=== PATIENT | female | born 1945 | race Caucasian/White ===

== ENCOUNTER 2020-05-26 09:57 | Outpatient (CLI) | payer MEDICARE, SELFPAY ==
--- NOTE | ~2020-05-26 | CT_ITS ---
EXAMINATION: CT abdomen pelvis w con DATE: 05/26/2020 10:36 INDICATION: Diffuse abdominal pain for 1.5 years TECHNIQUE: Computed tomography (CT) of the abdomen and pelvis was performed with 100 cc Omnipaque 350 intravenous contrast. Automated exposure control and iterative reconstruction technique were employe d. Exam dose: 248.54 mGy-cm total exam DLP. COMPARISON: 09/25/2019 CT abdomen pelvis 11/23/2018 complete abdominal ultrasound examination FINDINGS: The lung bases are clear of infiltrate or consolidation. Mild cardiomegaly. No pericardial or pleural effusion. There is a fat-containing left foramen of Bochdalek hernia. No hepatic, splenic, pancreatic, adrenal or renal space-occupying mass lesion is evident. The gallbla dder is present. No bile duct dilatation. No urinary tract calculus or hydroureteronephrosis is evide nt. The urinary bladder is relatively evacuated, not optimally evaluated. The uterus and adnexal area s are unremarkable. Normal caliber of the abdominal aorta. No intraperitoneal or retroperitoneal or pelvic mass lesion or adenopathy or ascites is detected. No bowel obstruction, bowel wall thickening, pneumatosis or intraperitoneal free air. Normal appendix . Very small fat-containing umbilical hernia. Included skeletal structures are unremarkable. IMPRESSION: No cause for generalized abdominal pain for 1.5 years is identified Reviewed, dictated and finalized at Location A. Reviewed, dictated and finalized at location B. IMPRESSION: No cause for generalized abdominal pain for 1.5 years is identifie d
[2020-05-26 10:23] LABS: Estimated Glomerular Filt Rate > 60
== END 2020-05-26 09:58 | disposition home or self-care (01) ==
LOC: ANHIMG 10:02
PROVIDERS: PCP Family Medicine; Visit Provider Family Medicine
DX: R10.9 Unspecified abdominal pain (principal)
CPT/HCPCS: 36415; 74177; Q9967

== ENCOUNTER 2020-06-18 01:32 | Outpatient (CLI) | payer MEDICARE, SELFPAY ==
[2020-06-18 19:29] LABS: SARS-CoV-2 RNA PCR Negative
== END 2020-06-18 01:33 | disposition home or self-care (01) ==
LOC: ANHCOVIDDT 01:32
PROVIDERS: PCP Family Medicine; Visit Provider Internal Medicine Gastroenterology
DX: Z01.812 Encounter for preprocedural laboratory examination (principal); Z20.828 Contact with and (suspected) exposure to other viral communicable diseases
CPT/HCPCS: 87635; C9803; U0003

== ENCOUNTER 2020-06-21 01:55 | Day surgery (SDC) | payer MEDICARE, SELFPAY ==
[2020-06-13 10:23] VITALS: BMI 20.6
[2020-06-21 08:33] VITALS: BP 150/94; PULSE 72; RESP 15; TEMP 36.8; O2SAT 99; BMI 20.9
[2020-06-21] MEDS: LACTATED RINGERS 1,000 ML 150 ML IV CONT (08:58)
--- NOTE | 2020-06-21 09:45 | WPDANESEPPF ---
Anes - Initial Pre Proc Eval Procedure: Operation Date: 06/21/20 09:45 Proposed Procedures p Esophagogastroduodenoscopy & Screening Colonoscopy - Esau Zimmerman MD Date/Time: 06/21/20 09:45 Surgeon: Esau Zimmerman MD Pre Op Diagnosis: reflux, neoplasm screening Patient Data Age: 74 Gender: F Height: 5 ft 4 in Weight: 55.3 kg Last Vital Signs Temp 98.2 F 06/21/20 08:33 Pulse 72 06/21/20 08:33 Resp 15 06/21/20 08:33 BP 150/94 H 06/21/20 08:33 Pulse Ox 99 06/21/20 08:33 Allergies Allergy/AdvReac Type Severity Reaction Status Date / Time erythromycin base Allergy Unknown STOMACH Verified 06/21/20 08:32 Penicillins Allergy Unknown Unknown Verified 06/21/20 08:32 tetracycline Allergy Unknown Unknown Verified 06/21/20 08:32 Home Medications Medication Instructions Recorded Confirmed Type valacyclovir 500 mg tablet 500 mg PO DAILY #90 tablet 09/24/19 06/21/20 Rx levothyroxine 75 mcg tablet 75 mcg PO DAILY #90 tablet 10/26/19 06/21/20 Rx citalopram 20 mg tablet 20 mg PO DAILY #30 tablet 01/25/20 06/21/20 Rx omeprazole 20 mg capsule,delayed 20 mg PO DAILY #14 cap 05/19/20 06/21/20 Rx release Patient hx anesthesia problems: none Family hx anesthesia problems: none [facility] Past Medical History Medical History (Updated 06/21/20 @ 09:44 by Edilson Claire MD) GERD (gastroesophageal reflux disease) Hypothyroidism, unspecified Pure hypercholesterolemia, unspecified Social History Social History Smoking status: Never smoker Alcohol intake: current Anes - Eval Final PreProcedure Day of Procedure 06/21/20 09:45 Patient weight: normal Heart: regular rate and rhythm Lungs: clear to auscultation Airway: Mallampati scale class II Neurological: alert and oriented Last oral intake: >/= 8 hours ASA classification: III Emergent: no Anesthetic plan: proceed Anesthesia type and monitoring: general GIVS and standard monitoring Informed Consent: The patient's anesthetic plan and its attendant risks and benefits were discussed with the patient/family/POA. Questions were solicited and answers provided to the satisfaction of the patient/family/POA.
--- NOTE | 2020-06-21 10:01 | WPDHPUPDATE1 ---
History and Physical Update Update Date/Time: 06/21/20 10:01 History and Physical has been reviewed, including an updated exam of the patient. There are NO changes in the patient's condition. Risks, benefits, and alternatives have been discussed and questions answered. Patient agrees to proceed with procedure.
[2020-06-21] MEDS: CENTRAL LINE FLUSH 8 ML XX (10:31)
[2020-06-21 10:44] VITALS: BP 117/66; PULSE 73; RESP 14; O2SAT 100
[2020-06-21 10:54] VITALS: BP 106/61; PULSE 73; RESP 15; O2SAT 100
[2020-06-21 11:04] VITALS: BP 120/67; PULSE 62; RESP 18; O2SAT 100
== END 2020-06-21 11:25 | disposition home or self-care (01) ==
PROVIDERS: PCP Family Medicine; Visit Provider Internal Medicine Gastroenterology
PROC: 0DJ08ZZ Inspection of Upper Intestinal Tract, Via Natural or Artificial Opening Endoscopic (ICD-10-PCS; CPT 43235; principal; 2020-06-21 09:45)
DX: Z12.11 Encounter for screening for malignant neoplasm of colon (principal); D12.2 Benign neoplasm of ascending colon; D12.0 Benign neoplasm of cecum; D12.4 Benign neoplasm of descending colon; K21.9 Gastro-esophageal reflux disease without esophagitis; K29.50 Unspecified chronic gastritis without bleeding; I10 Essential (primary) hypertension; E78.5 Hyperlipidemia, unspecified; E03.9 Hypothyroidism, unspecified; Z79.899 Other long term (current) drug therapy; Z88.0 Allergy status to penicillin; Z88.1 Allergy status to other antibiotic agents
CPT/HCPCS: 45385; 45381; 43239; 87081; 88305; J7120

== ENCOUNTER 2020-07-13 10:32 | Outpatient (CLI) | payer MEDICARE, SELFPAY ==
--- NOTE | ~2020-07-13 | MM_ITS ---
EXAMINATION: MM screening carmen BI w margo HISTORY: Screening mammogram TECHNIQUE: Craniocaudal and mediolateral oblique 3-D tomosynthesis images were obtained and synthetic 2-D images were generated. CAD analysis was submitted and interpreted. COMPARISON: 12/29/2018, 12/26/2017, 10/17/2016 bilateral digital screening mammogram examinations BREAST PARENCHYMAL COMPOSITION: There are scattered areas of fibroglandular density. FINDINGS: Occasional benign calcifications. There is no evidence of suspicious mass, calcification, o r architectural distortion to suggest malignancy in either breast. There has been no suspicious inter peña change. IMPRESSION: 1. No mammographic evidence of malignancy. 2. Recommend routine screening mammography in one year. BI-RADS Category 2: Benign finding(s). Reviewed, dictated and finalized at location D.
== END 2020-07-13 10:33 | disposition home or self-care (01) ==
LOC: ANHIMG 10:35
PROVIDERS: PCP Family Medicine; Visit Provider Family Medicine
DX: Z12.31 Encounter for screening mammogram for malignant neoplasm of breast (principal)
CPT/HCPCS: 77063; 77067

== ENCOUNTER 2020-12-08 17:22 | Outpatient (CLI) | payer MEDICARE, SELFPAY ==
--- NOTE | ~2020-12-08 | XR_ITS ---
EXAMINATION: XR sacrum coccyx min 2V, XR lumbar spine 2-3V EXAM DATE: 12/08/2020 17:55 INDICATION: Low back pain, right leg pain for 2-3 months. No known acute injury. TECHNIQUE: Lumber spine frontal, lateral, lateral L5-S1 projections for interpretation. Frontal, inl et, lateral projections of the sacrum and coccyx. There are no prior studies for comparison. FINDINGS: Sacrum, sacroiliac joints, sacral arcuate lines are intact. Mild symmetric bilateral sacro iliac joint osteoarthritis. Minimal lumbar levoscoliosis. The vertebral body and disc heights are maintained, but there is eviden ce of mild disc disease. There is mild upper lumbar, mild to moderate lower lumbar facet arthropathy. The vertebral bodies are aligned in the AP dimension. IMPRESSION: 1. Overall mild bony degenerative changes. 2. Mild lumbar levoscoliosis. Reviewed, dictated and finalized at location A. D [employer]PERATIONS MAN IMPRESSION: 1. Overall mild bony degenerative changes. 2. Mild lumbar levoscoliosis.
== END 2020-12-08 17:23 | disposition home or self-care (01) ==
PROVIDERS: PCP Family Medicine; Visit Provider Family Medicine
DX: G89.29 Other chronic pain (principal); M53.3 Sacrococcygeal disorders, not elsewhere classified; M54.5 Low back pain
CPT/HCPCS: 72100; 72220

== ENCOUNTER → 2021-07-18 08:14 | Outpatient (CLI) | payer MEDICARE, SELFPAY ==
[2021-07-19 01:26] LABS: SARS-CoV-2 RNA PCR Negative
== END ==
PROVIDERS: PCP Family Medicine; Visit Provider Family Medicine
DX: R68.89 Other general symptoms and signs (principal); Z20.822 Contact with and (suspected) exposure to COVID-19
CPT/HCPCS: C9803; U0003; U0005

== ENCOUNTER 2021-11-06 13:23 | Outpatient (CLI) | payer MEDICARE, SELFPAY ==
--- NOTE | ~2021-11-06 | MM_ITS ---
EXAMINATION: MM screening carmen BI w margo HISTORY: Screening TECHNIQUE: Craniocaudal and mediolateral oblique 3-D tomosynthesis images were obtained and synthetic 2-D images were generated. CAD analysis was submitted and interpreted. COMPARISON: Comparison to multiple prior studies sequentially, with oldest reviewed study dated 09/20. BREAST PARENCHYMAL COMPOSITION: There are scattered areas of fibroglandular density. FINDINGS: There is no evidence of suspicious mass, calcification, or architectural distortion to sugg est malignancy in either breast. There has been no suspicious interval change. IMPRESSION: 1. No mammographic evidence of malignancy. 2. Recommend routine screening mammography in one year. BI-RADS Category 1: Negative Reviewed, dictated and finalized at location B. HARGE COORDINATOR
== END 2021-11-06 13:24 | disposition home or self-care (01) ==
LOC: ANHIMG 13:25
PROVIDERS: PCP Family Medicine; Visit Provider Physician Assistant
DX: Z12.31 Encounter for screening mammogram for malignant neoplasm of breast (principal)
CPT/HCPCS: 77063; 77067

== ENCOUNTER 2022-01-26 15:05 | Outpatient (CLI) | payer MEDICARE, SELFPAY ==
--- NOTE | ~2022-01-26 | US_ITS ---
EXAMINATION: US soft tissue head and neck EXAM DATE: 01/26/2022 16:04 INDICATION: Right neck lump. TECHNIQUE: Multiple grayscale and Doppler images of the right submandibular region were obtained (by a technologist who performed the scan) and subsequently reviewed. There is no prior study for compar karyn. FINDINGS: Scanning in the area of patient's clinical concern demonstrates a normal-appearing submandibular glan d which is symmetric to the contralateral side. No other mass, mass within the submandibular gland, l ymphadenopathy or abscess is identified. IMPRESSION: 1. Unremarkable ultrasound exam. Reviewed, dictated and finalized at location A.
== END 2022-01-26 15:06 | disposition home or self-care (01) ==
PROVIDERS: PCP Family Medicine; Visit Provider Family Medicine
DX: R22.1 Localized swelling, mass and lump, neck (principal)
CPT/HCPCS: 76536

== ENCOUNTER 2022-02-09 14:59 | Outpatient (CLI) | payer MEDICARE, SELFPAY ==
--- NOTE | ~2022-02-09 | DEXA_ITS ---
Bone Density Report Name: ISMAEL SAMPSON Age: 76 Sex: Female Ethnicity: White Date of : 1945 Indication: postmenopausal osteoporosis; height loss; Referring Provider: MALENA RUDD Study: Bone densitometry was performed. Exam Date: February 09, 2022 Accession number: [id number] Bone Density: Region BMD T-score Z-score Classification AP Spine(L1-L4) 0.716 -3.0 -0.6 Osteoporosis Femoral Neck (Left) 0.563 -2.6 -0.5 Osteoporosis Total Hip (Left) 0.699 -2.0 -0.2 Osteopenia Femoral Neck (Right) 0.553 -2.7 -0.6 Osteoporosis Total Hip (Right) 0.668 -2.2 -0.4 Osteopenia Total Hip Mean 0.684 -2.1 -0.3 Osteopenia World Health Organization criteria for BMD impression classify patients as: Normal (T-score at or above -1.0), Osteopenia (T-score between -1.0 and -2.5), or Osteoporosis (T-score at or below -2.5). 10-year Fracture Risk: FRAX not reported because: Some T-score for Spine Total or Hip Total or Femoral Neck at or below -2.5 Previous Exams: Region Exam Age BMD T-score BMD Change BMD Change Date g/cm2 vs Baseline vs Previous AP Spine (L1-L4) 02/09/2022 76 0.716 -3.0 -0.012 (-1.6%) -0.012 (-1.6%) 10/17/2016 71 0.728 -2.9 Total Hip(Left) 02/09/2022 76 0.699 -2.0 -0.016 (-2.2%) -0.016 (-2.2%) 10/17/2016 71 0.715 -1.9 Total Hip(Right) 02/09/2022 76 0.668 -2.2 -0.056 (-7.8%) -0.056 (-7.8%) 10/17/2016 71 0.724 -1.8 *Denotes significance at 95% confidence level, LSC for AP Spine = 0.022 g/cm2, LSC for Total Hip = 0.027 g/cm2 Clinical Information Provided by Patient: Patient maximum height was 63.5 Menopause Age: 53 Onset of menses at age 14 Number of children 2 Impression: The patient has osteoporosis, based on the Total Spine T-score. The BMD for the Total Hip(Right) decreased, changing by -7.8% since the last DXA exam. Discussion: INCREASED RISK OF FRACTURE. BONE DENSITY IS UNDESIRABLY LOW AT ONE OR MORE SKELETAL SITES, CONSISTENT WITH POSTMENOPAUSAL OSTEOPOROSIS. This patient's lowest T-score meets the World Health Organization's (WHO) criteria for osteoporosis at one or more sites (T-score -2.5 or below). In untreated patients, the risk of osteoporotic fracture increases approximately two-fold for each 1.0 SD decrease in T-score. Low bone density is not the only risk factor for fracture; also consider factors such as patient's age, frailty or poor health, risk of falling, risk of injury, previous osteoporoti
== END 2022-02-09 15:00 | disposition home or self-care (01) ==
PROVIDERS: PCP Family Medicine; Visit Provider Physician Assistant
DX: Z78.0 Asymptomatic menopausal state (principal); M81.0 Age-related osteoporosis without current pathological fracture; M85.852 Other specified disorders of bone density and structure, left thigh; M85.851 Other specified disorders of bone density and structure, right thigh
CPT/HCPCS: 77080

== ENCOUNTER 2023-01-08 08:55 | Outpatient (CLI) | payer MEDICARE, SELFPAY ==
--- NOTE | ~2023-01-08 | MM_ITS ---
EXAMINATION: MM screening carmen BI w margo HISTORY: Screening TECHNIQUE: Craniocaudal and mediolateral oblique 3-D tomosynthesis images were obtained and synthetic 2-D images were generated. CAD analysis was submitted and interpreted. COMPARISON: Comparison to multiple prior studies sequentially, with oldest reviewed study dated 09/21. BREAST PARENCHYMAL COMPOSITION: There are scattered areas of fibroglandular density. FINDINGS: There is no evidence of suspicious mass, calcification, or architectural distortion to sugg est malignancy in either breast. There has been no suspicious interval change. IMPRESSION: 1. No mammographic evidence of malignancy. 2. Recommend routine screening mammography in one year. BI-RADS Category 1: Negative Reviewed, dictated and finalized at location A.
== END 2023-01-08 08:56 | disposition home or self-care (01) ==
LOC: ANHIMG 08:57
PROVIDERS: PCP Family Medicine; Visit Provider Family Medicine
DX: Z12.31 Encounter for screening mammogram for malignant neoplasm of breast (principal)
CPT/HCPCS: 77063; 77067

== ENCOUNTER → 2023-08-07 12:10 | Outpatient (CLI) | payer MEDICARE, SELFPAY ==
--- NOTE | ~2023-08-07 | XR_ITS ---
EXAMINATION: XR thoracolumbar DATE: 08/07/2023 12:29 INDICATION: Mid back pain. TECHNIQUE: 2 views of the thoracolumbar spine were obtained. COMPARISON: Lumbar spine radiograph 04/07/2021 FINDINGS: There is 4 degrees levocurvature of lumbar spine. Vertebral body heights and intervertebral disc heights are normal. There are endplate osteophytes at multiple levels. There is multilevel mild facet joint osteoarthritis. IMPRESSION: 1. Mild thoracolumbar spondylosis. Reviewed, dictated and finalized at location E.
== END ==
PROVIDERS: PCP Family Medicine; Visit Provider Nurse Practitioner
DX: M47.895 Other spondylosis, thoracolumbar region (principal)
CPT/HCPCS: 72080

== ENCOUNTER → 2023-08-28 09:27 | Outpatient (CLI) | payer MEDICARE, SELFPAY ==
--- NOTE | ~2023-08-28 | MMUS_ITS ---
EXAMINATION: MM diagnostic carmen RT w margo, US breast RT limited HISTORY: Right breast pain TECHNIQUE: Additional 3-D tomosynthesis images of the right breast were performed and synthetic 2-D i mages were generated. CAD analysis was submitted and interpreted. High resolution Limited right breas t ultrasound was performed. COMPARISON: Comparison to multiple prior studies sequentially, with oldest reviewed study dated 09/21. BREAST PARENCHYMAL COMPOSITION: Breast composed of scattered areas of fibroglandular density FINDINGS: MAMMOGRAPHIC FINDINGS: There are no suspicious masses, calcifications or architectural distortion in the right breast to sug gest malignancy. ULTRASOUND: Limited right breast ultrasound: Normal heterogeneous echotexture without focal solid or cystic mass. IMPRESSION: 1. No evidence for malignancy in the right breast. 2. Routine yearly screening mammogram and regular clinical breast examination are recommended. BI-RADS Category 1: Negative Reviewed, dictated and finalized at location A. TER DECORATOR IMPRESSION: 1. No evidence for malignancy in the right breast. 2. Routine yearly screening mammogram and regular clinical breast examination a re recommended. BI-RADS Category 1: Negative
== END ==
PROVIDERS: PCP Nurse Practitioner; Visit Provider Nurse Practitioner
DX: N64.4 Mastodynia (principal)
CPT/HCPCS: 76642; 77061; 77065; G0279

== ENCOUNTER 2024-01-08 01:16 | Day surgery (SDC) | payer MEDICARE, SELFPAY ==
[2024-01-01 11:23] VITALS: BMI 21.2
--- NOTE | 2024-01-06 10:17 | SUR.PREOP ---
Patient called regarding upcoming procedure. Reviewed preop instructions, appointment times, procedure prep.
[2024-01-08 10:03] VITALS: BP 151/82; PULSE 75; RESP 18; TEMP 36.4; O2SAT 98
[2024-01-08] MEDS: LACTATED RINGERS 1,000 ML 150 ML IV CONT (10:22)
--- NOTE | 2024-01-08 10:42 | WPDANESEPPF ---
Anes - Initial Pre Proc Eval Procedure: Operation Date: 01/08/24 11:00 Proposed Procedures p Colonoscopy - Esau Zimmerman MD Date/Time: 01/08/24 10:42 Surgeon: Esau Zimmerman MD Pre Op Diagnosis: History colon polyps Patient Data Age: 78 Gender: F Height: 1.63 m Weight: 57 kg Last Vital Signs Temp 97.5 F L 01/08/24 10:03 Pulse 75 01/08/24 10:03 Resp 18 01/08/24 10:03 BP 151/82 H 01/08/24 10:03 Pulse Ox 98 01/08/24 10:03 O2 Del Method Room Air 01/08/24 10:03 Allergies Allergy/AdvReac Type Severity Reaction Status Date / Time Penicillins Allergy Intermediate Rash Verified 01/08/24 10:02 erythromycin base AdvReac Severe STOMACH Verified 01/08/24 10:02 tetracycline AdvReac Severe Gastrointestinal Verified 01/08/24 10:02 Upset Home Medications Medication Instructions Recorded Confirmed Type ergocalciferol (vitamin D2) 1,250 See Rx Instructions .Route 04/01/23 01/01/24 Rx mcg (50,000 unit) capsule .COMPLEX #12 caps omeprazole 20 mg capsule,delayed 20 mg PO DAILY PRN heart burn 07/18/23 01/01/24 History release citalopram 20 mg tablet See Rx Instructions .Route 10/25/23 01/01/24 Rx .COMPLEX #90 tabs simvastatin 5 mg tablet 5 mg PO DAILY #90 tabs 11/18/23 01/01/24 Rx valacyclovir 500 mg tablet 500 mg PO DAILY PRN cold 11/18/23 01/01/24 Rx (Valtrex) sores/shingles #90 tabs levothyroxine 75 mcg tablet See Rx Instructions .Route 12/23/23 01/01/24 Rx .COMPLEX #90 tabs Patient hx anesthesia problems: none Family hx anesthesia problems: none Results Review: All pre-operative results and documents have been reviewed as part of the pre-operative evaluation. [facility] Past Medical History Medical History GERD (gastroesophageal reflux disease) Hepatitis C antibody test negative (~12/23/17) Hypothyroidism, unspecified Pure hypercholesterolemia, unspecified Family History Family History Father Family history of cardiovascular disease, Onset Age: 78 Hypertension Mother Family history of lung cancer Family history of primary malignant neoplasm of liver Patient's mother is , Onset Age: 74 Sibling Depression Social History Social History Smoking status: Never smoker Alcohol intake: current Drinks per week: 2 Alcohol use details: DRINKS Substance use: never Substance use type: does not use Lack of Transportation: No Lack of Food: Never True Current Housing: I Have Housing Concerned About Future Housing: No Difficulty Paying Gas/Electric Bills: No Difficulty Paying for Meds: No Currently Unemployed: No Education: Trade/Vocational Certificate Difficulty w/ Childcare or Family Care: No Living arrangements: with family Additional living arrangements comments: with sp Spiritual care concerns: No Anes - Eval Final PreProcedure Day of Procedure 01/08/24 10:42 Patient weight: normal Heart: regular rate and rhythm Lungs: clear to auscultation Airway: Mallampati scale class II Neurological: alert and oriented Last oral intake: >/= 8 hours ASA classification: III Emergent: no Anesthetic plan: proceed Anesthesia type and monitoring: general GIVS and standard monitoring Results Review: All pre-operative results and documents have been reviewed as part of the pre-operative evaluation. Informed Consent: The patient's anesthetic plan and its attendant risks and benefits were discussed with the patient/family/POA. Questions were solicited and answers provided to the satisfaction of the patient/family/POA.
--- NOTE | 2024-01-08 10:57 | PM.HPGS ---
History of Present Illness History of Present Illness Consent: Risks, benefits, and alternatives have been discussed and questions answered. Patient agrees to proceed with procedure. Chief complaint: History colon polyps Narrative: Paula Pope is a 78 year old female with colon polyps in 2019 Review of Systems Review of Systems: All systems reviewed & are unremarkable except as noted in HPI and below PMFSH Past Medical History Medical History GERD (gastroesophageal reflux disease) Hepatitis C antibody test negative (~12/23/17) Hypothyroidism, unspecified Pure hypercholesterolemia, unspecified Family History Family History Father Family history of cardiovascular disease, Onset Age: 78 Hypertension Mother Family history of lung cancer Family history of primary malignant neoplasm of liver Patient's mother is , Onset Age: 74 Sibling Depression Social History Social History Smoking status: Never smoker Alcohol intake: current Drinks per week: 2 Alcohol use details: DRINKS Substance use: never Substance use type: does not use Lack of Transportation: No Lack of Food: Never True Current Housing: I Have Housing Concerned About Future Housing: No Difficulty Paying Gas/Electric Bills: No Difficulty Paying for Meds: No Currently Unemployed: No Education: Trade/Vocational Certificate Difficulty w/ Childcare or Family Care: No Living arrangements: with family Additional living arrangements comments: with sp Spiritual care concerns: No Meds Home Medications and Allergies Home Medications Medication Instructions Recorded Confirmed Type ergocalciferol (vitamin D2) 1,250 See Rx Instructions .Route 04/01/23 01/01/24 Rx mcg (50,000 unit) capsule .COMPLEX #12 caps omeprazole 20 mg capsule,delayed 20 mg PO DAILY PRN heart burn 07/18/23 01/01/24 History release citalopram 20 mg tablet See Rx Instructions .Route 10/25/23 01/01/24 Rx .COMPLEX #90 tabs simvastatin 5 mg tablet 5 mg PO DAILY #90 tabs 11/18/23 01/01/24 Rx valacyclovir 500 mg tablet 500 mg PO DAILY PRN cold 11/18/23 01/01/24 Rx (Valtrex) sores/shingles #90 tabs levothyroxine 75 mcg tablet See Rx Instructions .Route 12/23/23 01/01/24 Rx .COMPLEX #90 tabs Allergies Allergy/AdvReac Type Severity Reaction Status Date / Time Penicillins Allergy Intermediate Rash Verified 01/08/24 10:02 erythromycin base AdvReac Severe STOMACH Verified 01/08/24 10:02 tetracycline AdvReac Severe Gastrointestinal Verified 01/08/24 10:02 Upset Vital Signs Vital Signs - 24 hr 01/08/24 10:03 Temperature 97.5 F L Pulse Rate 75 Respiratory Rate 18 Blood Pressure 151/82 H Pulse Oximetry 98 Oxygen Delivery Room Air Exam Const: General: comfortable and no acute distress HENMT: Face/Nose/Sinus: Normal nares present Eyes: General: appearance normal, both eyes and all related structures Neck: Neck: no JVD Resp: Auscultation: clear to auscultation bilaterally Cardio: Rate: regular rate Rhythm: regular rhythm GI: Inspection: non-distended GI Palp: Yes Soft to palpation Skin: General skin exam: normal color Neuro: General: gait normal Speech: normal speech Extrem: General: normal to inspection Psych: Mental Status: mental status grossly normal Assessment and Plan Assessment and plan (1) Colon polyps: Code(s): K63.5 - Polyp of colon Status: Acute Assessment and Plan: colonoscopy
[2024-01-08 11:13] VITALS: BP 126/59; PULSE 77; RESP 18; O2SAT 97
[2024-01-08 11:23] VITALS: BP 118/64; PULSE 72; RESP 16; O2SAT 100
[2024-01-08 11:33] VITALS: BP 125/64; PULSE 65; RESP 19; O2SAT 100
== END 2024-01-08 11:42 | disposition home or self-care (01) ==
PROVIDERS: PCP Family Medicine; Visit Provider Internal Medicine Gastroenterology
PROC: 0DJD8ZZ Inspection of Lower Intestinal Tract, Via Natural or Artificial Opening Endoscopic (ICD-10-PCS; CPT 45378; principal; 2024-01-08 11:00)
DX: Z12.11 Encounter for screening for malignant neoplasm of colon (principal); K57.30 Diverticulosis of large intestine without perforation or abscess without bleeding; K64.8 Other hemorrhoids; Z86.010 Personal history of colon polyps; E78.00 Pure hypercholesterolemia, unspecified; E03.9 Hypothyroidism, unspecified; K21.9 Gastro-esophageal reflux disease without esophagitis
CPT/HCPCS: G0105; J2704; J7120

== ENCOUNTER 2024-01-16 15:30 | Emergency (ER) | payer MEDICARE, SELFPAY ==
--- NOTE | ~2024-01-16 | XR_ITS ---
EXAMINATION: XR knee RT min 4V DATE: 01/16/2024 15:52 INDICATION: Right knee pain. TECHNIQUE: 4 views of right knee were obtained. COMPARISON: None. FINDINGS: Bone alignment is normal. No fracture. There is mild osteoarthritis of medial and lateral c ompartments characterized by tiny osteophytes. No joint space narrowing. No knee joint effusion. IMPRESSION: 1. Mild right knee osteoarthritis. Reviewed, dictated and finalized at location A.
--- NOTE | ~2024-01-16 | CT_ITS ---
CT OF right knee EXAMINATION: CT knee RT wo con DATE: 01/16/2024 19:18 INDICATION: Right knee pain, cannot bear weight TECHNIQUE: Computed tomography (CT) of the right knee was performed without intravenous contrast. Aut omated exposure control and iterative reconstruction technique were employed. The dose-length product was 440.55 mGy-cm. COMPARISON: X-ray right knee, same date FINDINGS: Mildly decreased bone mineralization. Moderate medial joint space narrowing. Mild lateral j oint space narrowing. Mild tricompartmental osteophytosis. No fracture or dislocation. No periosteal change. No lytic or blastic lesion. No erosions. Medial meniscal extrusion. Apparent apical tear of t he posterior horn, medial meniscus. Possible thickening/inflammatory change of the MCL. Remaining shawna or ligamentous stabilizers appear to be intact. IMPRESSION: No acute osseous finding in the right knee. Possible MCL tear and possible apical tear of the posteri or horn, medial meniscus, with meniscal extrusion. Nonemergent MRI of the knee may be helpful for fur ther evaluation of the soft tissue structures. Reviewed, dictated and finalized at location K. IMPRESSION: No acute osseous finding in the right knee. Possible MCL tear and possible apic al tear of the posterior horn, medial meniscus, with meniscal extrusion. Noneme rgent MRI of the knee may be helpful for further evaluation of the soft tissue structures.
--- NOTE | ~2024-01-16 | US_ITS ---
EXAMINATION: US venous doppler LE RT DATE: 01/16/2024 16:16 INDICATION: Right lower limb pain. TECHNIQUE: Grayscale ultrasound images without and with compression and Doppler ultrasound images of the right lower extremity veins were obtained. COMPARISON: None. FINDINGS: The visualized portions of right common femoral vein, profunda (deep) femoral vein, femoral vein, pop liteal vein, peroneal veins, posterior tibial veins, and greater saphenous vein outflow are patent. IMPRESSION: 1. No deep venous thrombosis. Reviewed, dictated and finalized at location A.
[2024-01-16 15:37] VITALS: BP 145/71; PULSE 89; RESP 18; TEMP 36.7; O2SAT 97
--- NOTE | 2024-01-16 15:40 | ED.LOWEXIN ---
HPI - Extremity Injury (Lower) General Chief Complaint: Extremity Injury, Lower <Dora Castillo PA-C - Last Filed: 01/16/24 15:41> Stated Complaint: right knee pain <OTTONIEL Chairez Last Filed: 01/16/24 15:41> Time Seen by Provider: 01/16/24 17:05 <OTTONIEL Chairez Last Filed: 01/16/24 15:41> Focused HPI: 78-year-old female presents to the emergency department for right leg pain that started yesterday and worsened today. Patient states she noticed some pain in her proximal calf and posterior knee yesterday. States she was walking in her neighbor steps today when she felt a crack in her knee and has been experiencing worsening pain. She states the pain behind her knee. Denies swelling or difficulty with range of motion. GENERAL: Well-appearing, well-nourished, and in no acute distress. HEAD: Normocephalic, atraumatic. CHEST: Clear to auscultation. ?No respiratory distress. MSK: Right lower extremity: pain upon palpation to the popliteal fossa without overlying edema or ecchymosis. No tenderness remainder of knee. There is tenderness to the proximal calf without overlying edema. Full passive range of motion of knee. DP pulse 2 +. HEART: Regular rate and rhythm.? NEURO: ?Alert and oriented x3. Patient screened in triage and initial orders placed.? ?Additional care and disposition to be based upon?diagnostic testing and treatment. <OTTONIEL Chairez Last Filed: 01/16/24 15:41> Related Data Home Medications: Home Medications Medication Instructions Recorded Confirmed omeprazole 20 mg capsule,delayed 20 mg PO DAILY PRN heart burn 07/18/23 01/01/24 release <OTTONIEL Chairez Last Filed: 01/16/24 15:41> Allergies/Adverse Reactions: Allergies Allergy/AdvReac Type Severity Reaction Status Date / Time Penicillins Allergy Intermediate Rash Verified 01/16/24 15:40 erythromycin base AdvReac Severe STOMACH Verified 01/16/24 15:40 tetracycline AdvReac Severe Gastrointestinal Verified 01/16/24 15:40 Upset <OTTONIEL Chairez Last Filed: 01/16/24 15:41> Review of Systems Review of Systems: All systems as dictated in HPI <Sanjeev Asencio PA-C - Last Filed: 01/17/24 02:19> PMFSH Past Medical History Medical History: Medical History GERD (gastroesophageal reflux disease) Hepatitis C antibody test negative (~12/23/17) Hypothyroidism, unspecified Pure hypercholesterolemia, unspecified <Dora Castillo PA-C - Last Filed: 01/16/24 15:41> Family History Family History: Family History Father Family history of cardiovascular disease, Onset Age: 78 Hypertension Mother Family history of lung cancer Family history of primary malignant neoplasm of liver Patient's mother is , Onset Age: 74 Sibling Depression <Dora Castillo PA-C - Last Filed: 01/16/24 15:41> Social History Social History: Social History Smoking status: Never smoker Alcohol intake: current Drinks per week: 2 Alcohol use details: DRINKS Substance use: never Substance use type: does not use Lack of Transportation: No Lack of Food: Never True Current Housing: I Have Housing Concerned About Future Housing: No Difficulty Paying Gas/Electric Bills: No Difficulty Paying for Meds: No Currently Unemployed: No Education: Trade/Vocational Certificate Difficulty w/ Childcare or Family Care: No Living arrangements: with family Additional living arrangements comments: with sp Spiritual care concerns: No <Dora Castillo PA-C - Last Filed: 01/16/24 15:41> Exam Narrative: GENERAL: Well-appearing, well-nourished, and in no acute distress. HEAD: Normocephalic, atraumatic. EYES: PERRLA and EOMI. ENT: Nares clear
--- NOTE | 2024-01-16 18:39 | PC.NURSE ---
Patient unable to swallow any pills and requests liquid medications only.
== END 2024-01-16 20:33 | disposition home or self-care (01) ==
PROVIDERS: Emergency Provider Physician Assistant; PCP Family Medicine
DX: M23.91 Unspecified internal derangement of right knee (principal); S89.91XA Unspecified injury of right lower leg, initial encounter; K21.9 Gastro-esophageal reflux disease without esophagitis; E03.9 Hypothyroidism, unspecified; E78.00 Pure hypercholesterolemia, unspecified; X58.XXXA Exposure to other specified factors, initial encounter
CPT/HCPCS: 73564; 73700; 93971; 99284

== ENCOUNTER 2024-01-22 09:21 | Outpatient (CLI) | payer MEDICARE, SELFPAY ==
--- NOTE | ~2024-01-22 | MR_ITS ---
MRI of the right knee Clinical history: MCL sprain Technique: Coronal proton density and proton density-weighted images, sagittal proton-density and T2 fat-sat images, and axial proton-density fat-saturated images were acquired. Findings: Anterior and posterior cruciate ligaments are intact. Medial collateral ligament and the la teral collateral ligament complex are intact. Popliteus tendon intact. Probable radial tear near the posterior root of the medial meniscus. Lateral meniscus is intact. There is mild chondromalacia patella. There is mild chondral thinning in the medial lateral compartme nt. Bone marrow signals are unremarkable. Extensor mechanism is intact. No significant joint effusion. Minimal Pereira's cyst. Impression: Probable radial tear at the posterior root of the medial meniscus. Reviewed, dictated and finalized at location M. Impression: Probable radial tear at the posterior root of the medial meniscus.
== END 2024-01-22 09:22 ==
LOC: GOSHIMG 09:22
PROVIDERS: PCP Family Medicine; Visit Provider Nurse Practitioner
DX: S83.419A Sprain of medial collateral ligament of unspecified knee, initial encounter (principal); X58.XXXA Exposure to other specified factors, initial encounter
CPT/HCPCS: 73721

== ENCOUNTER 2024-03-04 10:15 | Outpatient (RCR) | payer MEDICARE, SELFPAY ==
--- NOTE | 2024-01-24 13:56 | PTOPEVAL1 ---
Assessment and note entered by Benjamin Crandall, PT, DPT Evaluation Information Assessment Status Evaluation Diagnosis R knee pain - medial meniscus tear Onset 1 week Subjective Information Pt states she was going down stairs a felt a big pop in her leg, she states after that she started to get extreme pain in her knee. She states initially she was unable to stand d/t her pain. Reported Pain Level Pain Score 4: Self Report Assessment PT Clinical Summary Charlene presents to therapy today for her initial evaluation with a diagnosis of R knee pain after a torn medial meniscus. Today she demonstrates knee ROM that is WNL but pain at end ROM. Her gross and functional strength is limited by pain. She initially ambulates with a significantly decreased gait speed with major deviations and requires the use of a cane. Gait training was given today to help normalize these patterns. Skilled therapy services are indicated to address the deficits noted above, to manage pain, and to return to PLOF without limitations. Plan of Care Interventions Electrical Stimulation,Gait Training,Hot Pack/Cold Pack,Manual Therapy,Neuro Re-education,Patient/ Caregiver Educati,Therapeutic Activities, Therapeutic Exercise PT Services Indicated Yes Treatment Frequency and 2x/wk for 6 visits Duration These treatments will address the objective and functional deficits as defined above. The patient will be advanced safely and appropriately in order for the patient to progress towards his/her prior level of function. Additional exercises will be introduced and as well as a comprehensive home exercise program upon discharge, if needed, ?to ensure carryover of functional gains achieved in the clinic. This treatment plan has been reviewed and agreement upon by the patient.
--- NOTE | 2024-01-24 13:56 | OPREHPOC ---
Outpatient Therapy Plan of Care This is a Multidisciplinary Plan of Care that may contain components documented by all disciplines (PT, OT, and ST.) PT Problem 1 PT Problem #1 Knowledge Deficit PT Goal 1 Goal Pt to be IND with issued HEP Target Visit 6 PT Problem 2 PT Problem #2 Pain PT Goal 1 Goal Pt to report knee pain no greater than 3/10 in the last week. Target Visit 6 PT Goal 2 Goal Pt to report 75% improvement in overall symptoms Target Visit 6 PT Problem 3 PT Problem #3 Impaired Gait PT Goal 1 Goal Pt to ambulate on level ground without deviations. Target Visit 8 PT Goal 2 Goal Pt to ascend/descend stairs without need for UE support. Target Visit 8 PT Problem 4 PT Problem #4 Impaired Gait PT Goal 1 Goal Pt to report daily walking has progressed to 20 mins. Target Visit 8
--- NOTE | 2024-02-04 12:46 | PCPTNOTE ---
Patient called to cancel due to illness.
--- NOTE | 2024-02-06 14:45 | PCPTNOTE ---
Patient called to cancel due to her hurting .
--- NOTE | 2024-03-04 11:00 | OPREHPOC ---
Outpatient Therapy Plan of Care This is a Multidisciplinary Plan of Care that may contain components documented by all disciplines (PT, OT, and ST.) PT Problem 1 PT Problem #1 Knowledge Deficit PT Goal 1 Goal Pt to be IND with issued HEP Target Visit 6 Progress Met PT Problem 2 PT Problem #2 Pain PT Goal 1 Goal Pt to report knee pain no greater than 3/10 in the last week. Target Visit 6 Progress Partially Met Comment Worse today but overall has been remarkably better . PT Goal 2 Goal Pt to report 75% improvement in overall symptoms Target Visit 6 Progress Met PT Problem 3 PT Problem #3 Impaired Gait PT Goal 1 Goal Pt to ambulate on level ground without deviations. Target Visit 8 Progress Met PT Goal 2 Goal Pt to ascend/descend stairs without need for UE support. Target Visit 8 Progress Met PT Problem 4 PT Problem #4 Impaired Gait PT Goal 1 Goal Pt to report daily walking has progressed to 20 mins. Target Visit 8 Progress Met
--- NOTE | 2024-03-04 11:01 | PTOPDC ---
Assessment and note entered by Jason Rubio, PT Evaluation Information Assessment Status Progress Diagnosis R knee pain - medial meniscus tear Onset 1 week Subjective Information Patient reports that she feels she was doing a lot better up until last visit. Reports that when she added the resistance bands she noted some lateral leg pain and hip pain that was not there before. Still feels she is limping at this time. Feels she is doing better overall and has an understanding of what she needs to be doing moving forward. Requests discharge to [facility] at this time. Reported Pain Level Pain Score 4: Self Report Assessment PT Clinical Summary Patient met all goals for therapy at this time. She did report some increased pain with hip band resistance exercises but was able to overcome by removing resistance and emphasizing motion. After education and gait correction patient was able to meet all goals this date. Plan of Care PT Services Indicated D/C to [facility]
== END 2024-03-04 11:59 | disposition home or self-care (01) ==
LOC: ANHGOSHPT 10:15
PROVIDERS: PCP Family Medicine; Visit Provider Orthopaedic Surgery
DX: S83.206D Unspecified tear of unspecified meniscus, current injury, right knee, subsequent encounter (principal); M25.661 Stiffness of right knee, not elsewhere classified; M25.561 Pain in right knee
CPT/HCPCS: 97016; 97110; 97116; 97140; 97161; 97530; 99199

== ENCOUNTER 2024-07-14 09:19 | Outpatient (CLI) | payer MEDICARE, SELFPAY ==
--- NOTE | ~2024-07-14 | US_ITS ---
EXAMINATION: US venous doppler LE RT DATE: 07/14/2024 10:10 INDICATION: Right lower limb pain. TECHNIQUE: Grayscale ultrasound images without and with compression and Doppler ultrasound images of the right lower extremity veins were obtained. COMPARISON: Ultrasound 01/16/2024 FINDINGS: The visualized portions of right common femoral vein, profunda (deep) femoral vein, femoral vein, pop liteal vein, peroneal veins, posterior tibial veins, and greater saphenous vein outflow are patent. IMPRESSION: 1. No deep venous thrombosis. Reviewed, dictated and finalized at location A.
== END 2024-07-14 09:20 | disposition home or self-care (01) ==
PROVIDERS: PCP Family Medicine; Visit Provider Nurse Practitioner
DX: M79.604 Pain in right leg (principal)
CPT/HCPCS: 93971

== ENCOUNTER 2024-07-27 12:55 | Outpatient (CLI) | payer MEDICARE, SELFPAY ==
--- NOTE | ~2024-07-27 | XR_ITS ---
XR cervical spine 4-5V Ordering provider: Yan Diaz MD History: . M54.2 - Cervicalgia . Comparison: None. FINDINGS: VERTEBRAL BODIES: Normal height and alignment. No visible fracture or subluxation. The dens is intact . DISK SPACES: Well maintained. Uncovertebral joint osteoarthritic changes at the level of C4-C5, C5-C6 and C6-C7.. PARASPINOUS SOFT TISSUES: No prevertebral soft tissue swelling. IMPRESSION: No acute osseous abnormality cervical spine. Reviewed, dictated and finalized at location A.
--- NOTE | ~2024-07-27 | XR_ITS ---
XR shoulder LT min 2V Ordering provider: Yan Diaz MD History: . M25.512 - Pain in left shoulder . Comparison: September 09, 2017 FINDINGS: BONES: No acute fracture or dislocation. JOINT SPACES: The acromioclavicular joint is normal. The glenohumeral joint is normal. SOFT TISSUES: Normal. IMPRESSION: No acute osseous abnormality left shoulder. Reviewed, dictated and finalized at location A.
--- NOTE | ~2024-07-27 | XR_ITS ---
XR shoulder RT min 2V Ordering provider: Yan Diaz MD History: . M25.511 - Pain in right shoulder . Comparison: None. FINDINGS: BONES: No acute fracture or dislocation. JOINT SPACES: The acromioclavicular joint is normal. The glenohumeral joint is normal. SOFT TISSUES: Normal. IMPRESSION: No acute osseous abnormality right shoulder. Reviewed, dictated and finalized at location A.
--- NOTE | ~2024-07-27 | XR_ITS ---
3 VIEWS LUMBAR SPINE Ordering provider: Yan Diaz MD History: . M54.9 - Dorsalgia, unspecified . Comparison: None. FINDINGS: VERTEBRAL BODIES: No visible fracture or subluxation. DISK SPACES: Normal. Facet joint disease at the level of L5-S1. SOFT TISSUES: Aortic atherosclerotic changes. IMPRESSION: No acute osseous abnormality lumbar spine. Reviewed, dictated and finalized at location A.
== END 2024-07-27 12:56 | disposition home or self-care (01) ==
LOC: MICIMG 12:55
PROVIDERS: PCP Anesthesiology Pain Medicine; Visit Provider Anesthesiology Pain Medicine
DX: M25.511 Pain in right shoulder (principal); M25.512 Pain in left shoulder; M54.2 Cervicalgia
CPT/HCPCS: 72050; 72114; 73030

== ENCOUNTER 2024-08-12 06:58 | Outpatient (CLI) | payer MEDICARE, SELFPAY ==
--- NOTE | ~2024-08-12 | MR_ITS ---
EXAMINATION: MR shoulder LT wo con DATE: 08/12/2024 07:53 INDICATION: Impingement syndrome of left shoulder. TECHNIQUE: Magnetic resonance imaging (MRI) of the left shoulder was performed without intravenous co ntrast. Sequences included axial PD-weighted FS FSE, coronal oblique PD-weighted FS FSE and T2-weight ed FS FSE, and sagittal oblique T2-weighted FS FSE and T1-weighted FSE. COMPARISON: Left shoulder radiographs 07/27/2024 FINDINGS: Coracoacromial arch: The acromion undersurface is flat in morphology (type I). There is mild acromioclavicular joint osteo arthritis. There is mild subacromial/subdeltoid bursitis. Rotator cuff: There is mild supraspinatus and infraspinatus tendinopathy. Teres minor tendon is normal. There is mi ld subscapularis tendinopathy. No tear. There is no asymmetric fatty atrophy of the rotator cuff musc le bellies. Biceps tendon and glenoid labrum: Biceps tendon is in bicipital groove. There is moderate intra-articular biceps tendinopathy. There is degeneration of the glenoid labrum without well-defined tear. Fluid: There is a small glenohumeral joint effusion. Bones/cartilage: Humeral head cartilage is normal. Glenoid cartilage is normal. IMPRESSION: 1. Mild rotator cuff tendinopathy. No tear. 2. Moderate intra-articular biceps tendinopathy. 3. Mild acromioclavicular joint osteoarthritis. 4. Mild subacromial/subdeltoid bursitis. 5. Small glenohumeral joint effusion. Reviewed, dictated and finalized at location A.
--- NOTE | ~2024-08-12 | MR_ITS ---
Procedure: MR lumbar spine wo con Ordering provider: Yan Diaz MD History: . M54.17 - Radiculopathy, lumbosacral region . Comparison: None. Technique: MRI of lumbar spine without contrast. FINDINGS: SPINAL CORD: Normal. The cord ends at the level of L1. VERTEBRAL BODIES: Normal height and alignment. No compression fracture. Normal marrow signal. DISK SPACES: Normal. L1-L2: Normal. L2-L3: Mild diffuse disc bulge. Mild thickening of the ligamenta flava. No compression. L3-L4: Mild diffuse disc bulge. Mild thickening of the ligamenta flava. No root compression. L4-L5: Mild spinal canal stenosis. Mild diffuse disc bulge. Mild thickening of the ligamenta flava. P ossible nerve root compression on the left side.. L1 5 S1: Mild diffuse disc bulge. Possible nerve root compression the left side. Clinical correlation advised. PARASPINOUS SOFT TISSUES: Normal. IMPRESSION: No compression fracture or stenosis of the thoracic spine. Multilevel diffuse disc bulge with variable degrees of spinal canal stenosis, nerve root compression and facet joint disease Reviewed, dictated and finalized at location A. IMPRESSION: No compression fracture or stenosis of the thoracic spine. Multilevel diffuse disc bulge with variable degrees of spinal canal stenosis, n erve root compression and facet joint disease
== END 2024-08-12 06:59 | disposition home or self-care (01) ==
LOC: MICIMG 06:59
PROVIDERS: PCP Family Medicine; Visit Provider Anesthesiology Pain Medicine
DX: M54.17 Radiculopathy, lumbosacral region (principal); M75.42 Impingement syndrome of left shoulder; M19.012 Primary osteoarthritis, left shoulder; M75.52 Bursitis of left shoulder; M25.412 Effusion, left shoulder; M51.26 Other intervertebral disc displacement, lumbar region
CPT/HCPCS: 72148; 73221

== ENCOUNTER 2024-08-20 09:03 | Outpatient (CLI) | payer MEDICARE, SELFPAY ==
--- NOTE | ~2024-08-20 | DEXA_ITS ---
Bone Density Report Name: ISMAEL SAMPSON Age: 79 Sex: Female Ethnicity: White Date of : 1945 Indication: postmenopausal osteoporosis; height loss; Referring Provider: LIS CARBAJAL Study: Bone densitometry was performed. Exam Date: August 20, 2024 Accession number: [id number] Bone Density: Region BMD T-score Z-score Classification AP Spine(L1-L4) 0.694 -3.2 -0.6 Osteoporosis Femoral Neck (Left) 0.604 -2.2 0.0 Osteopenia Total Hip (Left) 0.715 -1.9 0.1 Osteopenia Femoral Neck (Right) 0.515 -3.0 -0.8 Osteoporosis Total Hip (Right) 0.696 -2.0 -0.1 Osteopenia Total Hip Mean 0.706 -2.0 0.0 Osteopenia World Health Organization criteria for BMD impression classify patients as: Normal (T-score at or above -1.0), Osteopenia (T-score between -1.0 and -2.5), or Osteoporosis (T-score at or below -2.5). 10-year Fracture Risk: FRAX not reported because: Some T-score for Spine Total or Hip Total or Femoral Neck at or below -2.5 Previous Exams: Region Exam Age BMD T-score BMD Change BMD Change Date g/cm2 vs Baseline vs Previous AP Spine (L1-L4) 08/20/2024 79 0.694 -3.2 -0.034 (-4.6%) -0.022 (-3.0%) 02/09/2022 76 0.716 -3.0 -0.012 (-1.6%) -0.012 (-1.6%) 10/17/2016 71 0.728 -2.9 Total Hip(Left) 08/20/2024 79 0.715 -1.9 0.000 (0.0%)# 0.016 (2.3%)# 02/09/2022 76 0.699 -2.0 -0.016 (-2.2%) -0.016 (-2.2%) 10/17/2016 71 0.715 -1.9 Total Hip(Right) 08/20/2024 79 0.696 -2.0 -0.028 (-3.9%) 0.028 (4.2%)# 02/09/2022 76 0.668 -2.2 -0.056 (-7.8%) -0.056 (-7.8%) 10/17/2016 71 0.724 -1.8 *Denotes significance at 95% confidence level, LSC for AP Spine = 0.022 g/cm2, LSC for Total Hip = 0.027 g/cm2 # Denotes dissimilar scan types or analysis methods Clinical Information Provided by Patient: Has used the following medications: Vitamin D, Calcium Patient maximum height was 63.5 Menopause Age: 53 No regular weight bearing exercise Drinks caffeinated beverages Onset of menses at age 14 Number of children 2 Impression: The patient has osteoporosis, based on the Total Spine T-score. No significant bone loss was observed. Discussion: INCREASED RISK OF FRACTURE. BONE DENSITY IS UNDESIRABLY LOW AT ONE OR MORE SKELETAL SITES, CONSISTENT WITH POSTMENOPAUSAL OSTEOPOROSIS. This patient's lowest T-score meets the World Health Organization's (WHO) criteria for osteoporosis at one or more sites (T-score -2.5 or below). In untreated patients, the risk of osteoporotic fracture increases approximately two-fold for each 1.0 SD decrease in T-score. Low bone density is not the only risk factor for fracture; also consider factors such as patient's age, frailty or poor health, risk of falling, risk of injury, previous osteoporotic fracture, family history of osteoporosis, cigarette smoking, low body weight, etc. Not everyone with low bone mineral density has osteoporosis; osteomalacia and other metabolic bone disorders should also be considered. Patients who have osteoporosis should be evaluated for specific diseases and conditions (secondary causes) that may cause or contribute to bone loss. The [place] [employer]ocrin[employer] (AACE) and National Osteoporosis Foundation (NOF) recommend pharmacologic intervention for all postmenopausal women whose T-score is in this range. The patient should follow a healthful lifestyle (good nutrition with adequate calcium and vitamin D, and appropriate weight-bearing exercise). Follow-Up: Consider a repeat BMD and Vertebral Fracture Assessment (VFA) exam in 2 years or sooner if medically necessary, to reassess this patient's status. Reported by: MELITON on 08/20/2024 9:29:00 AM. Reviewed, dictated and finalized at location AJob BARTHOLOMEW
== END 2024-08-20 09:04 | disposition home or self-care (01) ==
LOC: ANHIMG 09:04
PROVIDERS: PCP Nurse Practitioner; Visit Provider Family Medicine
DX: M81.0 Age-related osteoporosis without current pathological fracture (principal); M85.88 Other specified disorders of bone density and structure, other site
CPT/HCPCS: 77080

== ENCOUNTER 2025-06-09 11:51 | Outpatient (CLI) | payer MEDICARE, SELFPAY ==
--- NOTE | ~2025-06-09 | MM_ITS ---
EXAMINATION: MM screening [facility] BI w margo HISTORY: Screening mammogram TECHNIQUE: Craniocaudal and mediolateral oblique 3-D tomosynthesis images were obtained and synthetic 2-D images were generated. CAD analysis was submitted and interpreted. COMPARISON: 08/28/2023, 01/08/2023, 11/06/2021, 07/13/2020 BREAST PARENCHYMAL COMPOSITION:Not Dense. There are scattered areas of fibroglandular density. FINDINGS: No suspicious mass, calcification, or architectural distortion are identified in either breast to suggest malignancy. There has been no suspicious interval change. IMPRESSION: No mammographic evidence of malignancy. Recommend routine screening mammography in one year. BI-RADS Category 1: Negative Reviewed, dictated and finalized at location .
== END 2025-06-09 11:52 | disposition home or self-care (01) ==
LOC: MICIMG 11:53
PROVIDERS: PCP Family Medicine; Visit Provider Nurse Practitioner
DX: Z12.31 Encounter for screening mammogram for malignant neoplasm of breast (principal)
CPT/HCPCS: 77063; 77067